=== PATIENT | female | born 1990 | race Caucasian/White ===

== ENCOUNTER 2018-07-20 23:20 | Emergency (ER) | payer OTHER ==
--- NOTE | 2018-07-20 23:53 | PDOC ---
History of Present Illness - General Stated Complaint: INTOX Time Seen by Provider: 07/20/18 23:53 History Source: Patient Exam Limitations: Clinical Condition - History of Present Illness Initial Comments: 07/21/18 00:17 28 year old female with no PMH presented to ED for alcohol intoxication. Pt reported she was at a bar drinking and drank 6 beers. Pt denied everyday ETOH use and illicit drug use. Pt complained of left sided chest pain. Allergies: NKDA Past History - Past Medical History Allergies/Adverse Reactions: Allergies Allergy/AdvReac Type Severity Reaction Status Date / Time No Known Allergies Allergy Verified 07/21/18 00:03 Home Medications: Ambulatory Orders NK [No Known Home Medication] 07/21/18 Review of Systems - Review of Systems Able to Perform ROS?: Yes Comments:: 07/21/18 00:18 General: denied fever, chills, generalized weakness. HEENT: denied sore throat, rhinorrhea, ear pain. Heart: admitted to chest pain. denied palpitations, syncope, diaphoresis. Respiratory: denied shortness of breath, cough, sputum production, hemoptysis. Abdomen: denied abdominal pain, nausea, vomiting, diarrhea, constipation, blood in stool. : denied dysuria, increased urinary frequency, hematuria, urinary incontinence , flank pain. Back: denied back pain. Musculoskeletal: denied joint pain, muscle pain, joint swelling. Neurological: denied headache, dizziness, numbness, tingling, weakness. Skin: denied rash, laceration, abrasion. *Physical Exam - Physical Exam Comments: 07/21/18 00:18 Constitutional: Well-nourished, Well-developed, appearing stated age. appears intoxicated. HEENT: head is normocephalic. left frontal scalp hematoma. dried blood in bilateral nares, no septal hematoma. EOMI. PERRLA. dilated pupils bilaterally. Neck: supple. Full ROM. no midline c-spine tenderness. Heart: regular rhythm. no murmurs, rubs or gallops. Chest: tenderness to palpation of left anterior chest wall. Lungs: clear to auscultation bilaterally. no crackles, rhonchi or wheezing. no stridor. Back: no midline T-spine or L-spine tenderness. Abdomen: soft, nontender. normal bowel sounds. no rebound, guarding, masses. Extremities: peripheral pulses intact. no lower extremity edema. Neurological: CN 2-12 grossly intact. moves all four extremities. Psych: awake, alert, oriented to person and place. follows commands. answers questions appropriately. ED Treatment Course - LABORATORY CBC & Chemistry Diagram: 07/21/18 00:05 07/21/18 00:05 Medical Decision Making - Medical Decision Making 07/21/18 00:19 28 year old female with no PMH brought to ED by EMS for ETOH intoxication. Pt complaining of left sided chest pain. Initial Vital Signs Temp Pulse Resp BP Pulse Ox 98.8 F 84 18 104/66 99 07/20/18 23:30 07/20/18 23:30 07/20/18 23:30 07/20/18 23:30 07/20/18 23:30 Afebrile. No tachycardia. No tachypnea. Mild hypotension. No hypoxia on room air. Labs ordered: CBC, CMP, troponin, serum , mag, UA/UDS, slicyclate, etoh , acetaminophen Imaging ordered: CT head, CXR Medications ordered: none 07/21/18 02:07 CBC WBC 5.4 K/mm3 (4.0-10.0) 07/21/18 00:05 RBC 4.27 M/mm3 (3.60-5.2) 07/21/18 00:05 Hgb 13.7 GM/dL (10.7-15.3) 07/21/18 00:05 Hct 39.6 % (32.4-45.2) 07/21/18 00:05 MCV 92.7 fl (80-96) 07/21/18 00:05 MCH 32.1 pg (25.7-33.7) 07/21/18 00:05 MCHC 34.7 g/dl (32.0-36.0) 07/21/18 00:05 RDW 12.5 % (11.6-15.6) 07/21/18 00:05 Plt Count 280 K/MM3 (134-434) 07/21/18 00:05 MPV 7.4 fl (7.5-11.1) L 07/21/18 00:05 Absolute Neuts (auto) 4.1 K/mm3 (1.5-8.0) 07/21/18 00:05 Neutrophils % 77.0 % (42.8-82.8) 07/21/18 00:05 Lymphocytes % 17.9 % (8-40) 07/21/18 00:05 Monocytes % 4.1 % (3.8-10.2) 07/21/18 00:05 Eosinophils % 0.2 % (0-4.5) 07/21/18 00:05 Basophils % 0.8 % (0-2.0) 07/21/18 00:05 Nucleated RBC % 0 % (0-0) 07/21/18 00:05 No leukocytosis. No anemia. 07/21/18 03:16 CMP Sodium 141 mmol/L (136-145) 07/21/18 00:05 Potassium 3.9 mmol/L (3.5-5.1) 07/21/18 00:05 Chloride 109 mmol/L (98-107) H 07/21/18 00:05 Carbon Dioxide 25 mmol/L (21-32) 07/21/18 00:05 Anion Gap 7 MMOL/L (8-16) L 07/21/18 00:05 BUN 9 mg/dL (7-18) 07/21/18 00:05 Creatinine 0.8 mg/dL (0.55-1.3) 07/21/18 00:05 Creat Clearance w eGFR > 60 (>60) 07/21/18 00:05 Random Glucose 83 mg/dL (74-106) 07/21/18 00:05 Calcium 8.0 mg/dL (8.5-10.1) L 07/21/18 00:05 Phosphorus 4.0 mg/dL (2.5-4.9) 07/21/18 00:05 Magnesium 2.5 mg/dL (1.8-2.4) H 07/21/18 00:05 Total Bilirubin 0.2 mg/dL (0.2-1) 07/21/18 00:05 AST 21 U/L (15-37) 07/21/18 00:05 ALT 17 U/L (13-61) 07/21/18 00:05 Alkaline Phosphatase 49 U/L (45-117) 07/21/18 00:05 Troponin I < 0.02 ng/ml (0.00-0.05) 07/21/18 01:00 Total Protein 7.5 g/dl (6.4-8.2) 07/21/18 00:05 Albumin 4.3 g/dl (3.4-5.0) 07/21/18 00:05 Serum , Qual Negative 07/21/18 01:00 ETOH level = 300 Salicyclate and Acetaminophen level negative. Pt ambulated unassisted to NE and back at her request. Pending CT head. Pt stated she will call a cab to get back to [place]. 07/21/18 03:21 CT head report: no skull fracture. no acute brain parenchymal abnormality. no hemorrhage, mass. CXR my read: sharp costophrenic angles, no infiltrate, no cardiomegaly, no rib fractures, no large pneumothorax. Pt reassessed, alert and orientedx3, stated she would like to go home. Pt discharged. *DC/Admit/Observation/Transfer Diagnosis at time of Disposition: Intoxication - Discharge Dispostion Disposition: HOME Condition at time of disposition: Improved Decision to Admit order: No - Referrals - Patient Instructions Printed Discharge Instructions: DI for Alcohol Abuse Additional Instructions: You were seen today for alcohol intoxication. Your head CT was normal. Your chest X-ray was normal. Do not drink to excess. Follow up with your psychiatrist in 1-3 days. Follow up with your primary care doctor in 1-2 days. Return to the Emergency Department for chest pain, shortness of breath, lightheadedness, or any other new, worsening or concerning symptoms. - Post Discharge Activity Forms/Work/School Notes: Back to Work
[2018-07-21 00:05] VITALS: BP 104/66; PULSE 84; TEMP 98.8; BMI 22.4
[2018-07-21 01:03] LABS: BASO % 0.8 % (0-2.0); EOS % 0.2 % (0-4.5); HEMATOCRIT 39.6 % (32.4-45.2); HEMOGLOBIN 13.7 GM/dL (10.7-15.3); LYMPH % 17.9 % (8-40); MCH 32.1 pg (25.7-33.7); MCHC 34.7 g/dl (32.0-36.0); MEAN CELL VOLUME 92.7 fl (80-96); MEAN PLT VOLUME 7.4 fl (7.5-11.1); MONO % 4.1 % (3.8-10.2); PLATELET COUNT 280 K/MM3 (134-434); RBC 4.27 M/mm3 (3.60-5.2); RDW 12.5 % (11.6-15.6); WHITE BLOOD COUNT 5.4 K/mm3 (4.0-10.0)
--- NOTE | 2018-07-21 01:04 | PDOC ---
Attending Attestation - HPI HPI: 07/21/18 01:33 The patient is a 28 year old female with no PMH who presents to the ER with EtOH intoxication. Patient states that she drank 6 beers at the bar [employer], and denies daily alcohol use. She denies any drug use. Allergies: NKDA Surgeries: None reported Social: Occasional alcohol use. Denies cigarette or drug use. - Physicial Exam PE: 07/21/18 01:40 ADULT PHYSICAL EXAM Constitutional: Awake, alert, oriented. No acute distress. Head: (+) Hematoma to the forehead. Eyes: PERRL. EOMI. Conjunctivae are not pale. ENT: Mucous membranes are moist and intact. Posterior pharynx without exudates or erythema. Uvula midline. Neck: Supple. Full ROM. No lymphadenopathy. Cardiovascular: Regular rate. Regular rhythm. S1, S2 regular. Distal pulses are 2+ and symmetric. Pulmonary/Chest: No evidence of respiratory distress. Clear to auscultation bilaterally No wheezing, rales or rhonchi. Abdominal: Soft and non-distended. There is no tenderness. No rebound, guarding or rigidity. No organomegaly. No palpable masses. Good bowel sounds. Back: No CVA tenderness. Musculoskeletal: No edema. No cyanosis. No clubbing. Full range of motion in all extremities. Nocalf tenderness. Radial/pedal pulses are intact and 2+ bilaterally Skin: (+) Small abrasion to the tip of the nose. Neurological: (+) slurred speech. Psychiatric: Good eye contact. Normal interaction, affect and behavior. <Jannette Menjivar - Last Filed: 07/21/18 01:40> - Resident Resident Name: Michelle Abbott - ED Attending Attestation I have performed the following: I have examined & evaluated the patient, The case was reviewed & discussed with the resident, I agree w/resident's findings & plan, Exceptions are as noted - Medical Decision Making 07/21/18 01:04 I, Dr. Magnolia Welch, DO, attest that this document has been prepared under my direction and personally reviewed by me in its entirety. I further attest, that it accurately reflects all work, treatment, procedures and medical decision -making performed by me. 07/21/18 01:50 a/p: 28yo female biba [place] stating she drank too much and fell outside -will update tetanus -labs -head ct -local wound care -pt needs to metabolize etoh prior to dc to home -pt currently confused about events of the evening -pt has been ambulatory in the ED with a steady gait. -pt is from [place] - took the train up here. <Magnolia Welch - Last Filed: 07/21/18 02:09>
[2018-07-21 02:47] LABS: ALBUMIN 4.3 g/dl (3.4-5.0); ALK PHOS 49 U/L (45-117); ANION GAP 7 MMOL/L (8-16); BILIRUBIN,TOTAL 0.2 mg/dL (0.2-1); BLOOD UREA NITROGEN 9 mg/dL (7-18); CHLORIDE 109 mmol/L (98-107); CO2 25 mmol/L (21-32); CREATININE 0.8 mg/dL (0.55-1.3); GLUCOSE,RANDOM 83 mg/dL (74-106); MAGNESIUM 2.5 mg/dL (1.8-2.4); POTASSIUM 3.9 mmol/L (3.5-5.1); SGOT/AST 21 U/L (15-37); SGPT/ALT 17 U/L (13-61); SODIUM 141 mmol/L (136-145); TOT PROT 7.5 g/dl (6.4-8.2)
[2018-07-21] MEDS ORDERED: ACETAMINOPHEN 325 MG TABLET (FP) PO ONE (03:05)
[2018-07-21] MEDS ORDERED: ACETAMINOPHEN 325 MG TABLET (FP) ONE (03:05)
[2018-07-21] MEDS ORDERED: DIPHTH,PERTUSS(ACELL),TET 0.5 ML DISP.SYRIN IM ONE (03:21)
== END 2018-07-21 03:29 | disposition home or self-care (01) ==
LOC: JER 23:20
PROC: 3E0234Z Introduction of Serum, Toxoid and Vaccine into Muscle, Percutaneous Approach (ICD-10-PCS; principal; 2018-07-20)
DX: F10.120 Alcohol abuse with intoxication, uncomplicated (principal); Y90.8 Blood alcohol level of 240 mg/100 ml or more; S00.31XA Abrasion of nose, initial encounter; W18.39XA Other fall on same level, initial encounter; Y93.89 Activity, other specified; Y92.522 Railway station as the place of occurrence of the external cause; Y99.8 Other external cause status
CPT/HCPCS: 36415; 70450-TC; 71045-TC-FY; 80053; 80307; 83735; 84100; 84484; 84703; 85025; 99281-25